=== PATIENT | female | born 1960 | race Caucasian/White ===

== ENCOUNTER 2016-08-06 05:28 | Day surgery (SDC) | payer OTHER ==
[2016-08-05 10:30] VITALS: BMI 23.9
[~2016-08-06] VITALS: Ht 149.9 cm; Wt 51.9 kg
[2016-08-06] VITALS (9 sets, daily range): BP systolic 92–129; BP diastolic 61–85; PULSE 61–74; RESP 13–19; Ht 149.9 cm; Wt 51.9 kg
[~2016-08-06 05:28] MED LIST: SIMV20TA PO
[2016-08-06] MEDS ORDERED: LIDOCAINE 2% (MDV) 20 ML INJ ONE (06:54)
[2016-08-06] MEDS ORDERED: BUPIVACAINE 0.5% (SDV) 30 ML INJ ONE (06:54)
[2016-08-06] MEDS ORDERED: POLYMYXIN/BACITRACIN 1L IRRIG ONE (06:54)
[2016-08-06] MEDS ORDERED: PROPOFOL 20 ML ONE (07:31)
[2016-08-06] MEDS ORDERED: LIDOCAINE 2% (SDV) 5 ML INJ ONE (07:31)
--- NOTE | 2016-08-06 07:43 | HPN ---
Date/Time of Note Date/Time of Note DATE: 08/06/16 TIME: 07:43 Interval H&P Admission Note Pt. seen H&P reviewed: No system changes GREG SOLANO DPM August 06, 2016 07:43
[2016-08-06] MEDS ORDERED: FENTAnyl 50 MCG/ML VIAL IV PRN ×2 (08:00)
[2016-08-06] MEDS ORDERED: METOCLOPRAMIDE 10 MG INJ IV PRN (08:00)
[2016-08-06] MEDS ORDERED: ONDANSETRON 4 MG INJ IV PRN (08:00)
[2016-08-06] MEDS ORDERED: MEPERIDINE 25 MG INJ IV PRN (08:00)
[2016-08-06] MEDS ORDERED: morphine (1 MG/ML) 10ML SYRINGE IV PRN ×2 (08:00)
[2016-08-06] MEDS ORDERED: MIDAZOLAM 1 MG/ML 2 ML INJ IV PRN (08:00)
[2016-08-06] MEDS ORDERED: DIPHENHYDRAMINE 50 MG INJ IV PRN (08:00)
[2016-08-06] MEDS ORDERED: ONDANSETRON 4 MG INJ ONE (08:11)
[2016-08-06] MEDS ORDERED: METOCLOPRAMIDE 10 MG INJ ONE (08:11)
[2016-08-06] MEDS ORDERED: CEFAZOLIN 1 GM INJ ONE (08:11)
--- NOTE | 2016-08-06 10:36 | RADRPT ---
Vent Rate: 66 bpm RR Interval: 0 msec WV Interval: 126 msec QRS Duration: 82 msec QT Interval: 426 msec QTC Interval: 446 msec P-R-T [place]: 44 - 20 - 27 degrees Normal sinus rhythm Normal ECG Electronically Signed By: Jared Garcia [id number]
== END 2016-08-06 10:55 | disposition home or self-care (01) ==
LOC: SDS 05:28
PROVIDERS: ATTEND Podiatrist Foot & Ankle Surgery
DX: D36.13 Benign neoplasm of peripheral nerves and autonomic nervous system of lower limb, including hip (principal)
CPT/HCPCS: 64788; 88307; 93005; J0690; J2405; J2765; Z7512; Z7610